=== PATIENT | female | born 1960 | race Caucasian/White ===

== ENCOUNTER 2017-11-12 17:20 | Inpatient (IN) | payer OTHER ==
[2017-11-12] MEDS ORDERED: MAG HYDROX/AL HYDROX/SIMETH 30 ML UNIT-DOSE CUP PO ONE (17:46)
[2017-11-12] MEDS ORDERED: ONDANSETRON 4 MG/2 ML VIAL IVPUSH ONE (17:46)
[2017-11-12] MEDS ORDERED: FAMOTIDINE IV 20 MG/12 ML VIAL IVPB ONE (17:46)
--- NOTE | 2017-11-12 17:59 | PDOC ---
History of Present Illness - General Chief Complaint: Chest Pain Stated Complaint: CHEST DISCOMFORT Time Seen by Provider: 11/12/17 17:24 History Source: Patient Exam Limitations: Language Barrier - History of Present Illness Initial Comments: 11/12/17 17:44 Patient is a 57F with history of HTN, HLD, and hypothyroidism here today complaining of an episode of chest pain located along the right sternal border that started this afternoon and lasted for about an hour. The pain has resolved now. The patient states her pain did not change with exertion, rest or inspiration. She states that she got better after getting 4 aspirin from EMS. She denies associated shortness of breath, fever, vomiting. She endorses a headache, nausea. Denies history of blood clots, leg swelling, recent travel, recent immobilization. Past History - Past Medical History Allergies/Adverse Reactions: Allergies Allergy/AdvReac Type Severity Reaction Status Date / Time No Known Allergies Allergy Verified 11/12/17 17:27 Home Medications: Ambulatory Orders Losartan Potassium 25 mg PO DAILY 11/12/17 COPD: No HTN: Yes - Suicide/Smoking/Psychosocial Hx Smoking History: Never smoked Hx Alcohol Use: No Drug/Substance Use Hx: No Substance Use Type: None Review of Systems - Review of Systems Comments:: 11/12/17 18:00 GENERAL/CONSTITUTIONAL: No fever. Positive for chills. No weakness. HEAD, EYES, EARS, NOSE AND THROAT: No change in vision. No sore throat. CARDIOVASCULAR: Positive for chest pain. Negative for shortness of breath RESPIRATORY: No cough, wheezing, or hemoptysis. GASTROINTESTINAL: Positive for nausea. Negative for vomiting, diarrhea or constipation. GENITOURINARY: No dysuria, frequency, or change in urination. MUSCULOSKELETAL: No joint or muscle swelling or pain. No neck or back pain. SKIN: No rash NEUROLOGIC: Positive for headache. Negative for vertigo, loss of consciousness, or change in strength/sensation. ENDOCRINE: No increased thirst. No abnormal weight change HEMATOLOGIC/LYMPHATIC: No anemia, easy bleeding, or history of blood clots. ALLERGIC/IMMUNOLOGIC: No hives or skin allergy. *Physical Exam - Vital Signs Last Vital Signs Temp Pulse Resp BP Pulse Ox 98.2 F 74 18 124/64 100 11/12/17 17:22 11/12/17 17:32 11/12/17 17:22 11/12/17 17:22 11/12/17 17:32 - Physical Exam Comments: 11/12/17 18:01 GENERAL: Awake, alert, and fully oriented, in no acute distress HEAD: No signs of trauma, normocephalic, atraumatic EYES: PERRLA, EOMI, sclera anicteric, conjunctiva clear ENT: Auricles normal inspection, hearing grossly normal, nares patent, oropharynx clear without exudates. Moist mucosa LUNGS: No distress, speaks full sentences, clear to auscultation bilaterally HEART: Regular rate and rhythm, normal S1 and S2, no murmurs, rubs or gallops, peripheral pulses normal and equal bilaterally. EXTREMITIES: Normal inspection, Normal range of motion, no edema. No clubbing or cyanosis. NEUROLOGICAL: Cranial nerves II through XII grossly intact. Normal speech, no focal sensorimotor deficits SKIN: Warm, Dry, normal turgor, no rashes or lesions noted. Heart Score/ECG Review - History History: Slightly suspicious - Electrocardiogram EKG: Normal - Age Age: 45-65 - Risk Factors Risk Factors Heart Score: Yes Hx Hypercholesterolemia, Yes Hx Hypertension Based on the list above the patient has:: 1-2 risk factors - Troponin Troponin: >/=3x normal limit - Score Heart Score - Total: 4 ED Treatment Course - LABORATORY CBC & Chemistry Diagram: 11/12/17 17:49 11/12/17 17:49 - RADIOLOGY Radiology Studies Ordered: Category Date Time Status CHEST PA & LAT [RAD] Stat Radiology 11/12/17 17:40 Ordered Medical Decision Making - Medical Decision Making 11/12/17 18:04 Patient is 57F with history of HLD, HTN and hypothyroidism here today complaining of chest pain. Vital signs stale and normal. Chest pain has resolved , not a typical story. Differential diagnosis includes, but is not limited to: ACS, arrhythmia, esophageal spasm. Given patient's history and exam, do not believe PE is a likely diagnosis. Will evaluate with cbc, cmp, trop, mag, pt/inr , ekg, cxr. Likely 1 trop and discharge. EKG shows normal sinus rhythm, normal rate = 72. Normal axis. No st elevation/ depressions. No t wave abnormalities. Normal WA/QTc/QRS intervals. 11/12/17 19:16 Laboratory Tests 11/12/17 11/12/17 17:49 17:49 WBC 7.7 Hgb 13.1 Hct 38.0 Plt Count 157 BUN 17 Creatinine 1.1 H Troponin I 0.52 H Trop positive to .52. Patient still chest pain free. Call placed to Dr Otto. Chest x-ray changed to portable. Patient on monitor with stable blood pressure, regular and normal rate. Normal work of breathing. 11/12/17 19:34 Dr Otto consulted, recommends plavix 75 and lovenox 1mg/kg BID. Will not transfer patient at this time. Will admit to hospitalist. *DC/Admit/Observation/Transfer Diagnosis at time of Disposition: NSTEMI (non-ST elevated myocardial infarction) - Discharge Dispostion Condition at time of disposition: Stable Admit: Yes - Referrals Referrals: Narendra Mckeon [Primary Care Provider] - - Patient Instructions - Post Discharge Activity
[2017-11-12] MEDS ORDERED: MAG HYDROX/AL HYDROX/SIMETH 30 ML UNIT-DOSE CUP ONE (18:01)
[2017-11-12] MEDS ORDERED: FAMOTIDINE 20 MG/50 ML IVPB 20 MG/50 ML MG IVPB ONE (18:01)
[2017-11-12] MEDS ORDERED: ONDANSETRON 4 MG/2 ML VIAL ONE (18:01)
--- NOTE | 2017-11-12 18:17 | PDOC ---
Attending Attestation - Resident Resident Name: Lionel Singh - ED Attending Attestation I have performed the following: I have examined & evaluated the patient, The case was reviewed & discussed with the resident, I agree w/resident's findings & plan, Exceptions are as noted - Physicial Exam PE: GENERAL: Awake, alert, and fully oriented, in no acute distress HEAD: No signs of trauma EYES: PERRLA, EOMI, sclera anicteric, conjunctiva clear ENT: Auricles normal inspection, hearing grossly normal, nares patent, oropharynx clear without exudates. Moist mucosa NECK: Normal ROM, supple, no lymphadenopathy, JVD, or masses LUNGS: Breath sounds equal, clear to auscultation bilaterally. No wheezes, and no crackles HEART: Regular rate and rhythm, normal S1 and S2, no murmurs, rubs or gallops ABDOMEN: Soft, nontender, normoactive bowel sounds. No guarding, no rebound. No masses EXTREMITIES: Normal range of motion, no edema. No clubbing or cyanosis. No cords, erythema, or tenderness NEUROLOGICAL: Cranial nerves II through XII grossly intact. Normal speech, normal gait SKIN: Warm, Dry, normal turgor, no rashes or lesions noted. - Medical Decision Making 11/12/17 19:15 Patient currently pain free. Trop is positive at 0.52. Will discuss with Dr. Rivera cardio reconcilement clerk. Plan for admission vs transfer. <Taina Javier - Last Filed: 11/12/17 19:15> - HPI HPI: 11/12/17 19:21 The patient is a 57 year old female, with a significant past medical history of hypertension, hyperlipidemia, and hypothyroidism, who presents to the emergency department via EMS with, the chest tightness. She reports her tightness to be localized to the right side beginning the afternoon approximately 30 minutes after drinking tea. She describes her chest tightness as nonradiating. She denies ever having similar episodes prior. She denies recent fevers, chills , headache or dizziness. She denies recent nausea, vomit, diarrhea or constipation. She denies recent dysuria, frequency, urgency or hematuria. Allergies: NKA Primary Care Physician: Dr. Narendra Mckeon - Medical Decision Making 11/12/17 7:16pm Call placed to Dr. Otto, reconcilement clerk rag collector, awaiting call back. 7:32pm Call returned from Dr. Otto, case discussed. 7:36pm Microblog placed to hospitalist for inpatient telemetry admission. <Tiffany Franco - Last Filed: 11/12/17 19:37> Attestations - Attestations 11/12/17 19:21 Documentation prepared by Tiffany Franco, acting as medical records library professor for Taina Javier MD. <Tiffany Franco - Last Filed: 11/12/17 19:37>
[2017-11-12 18:21] LABS: BASO % 0.5 % (0-2.0); EOS % 0.4 % (0-4.5); HEMOGLOBIN 13.1 GM/dL (10.7-15.3); LYMPH % 12.2 % (8-40); MCH 30.6 pg (25.7-33.7); MCHC 34.6 g/dl (32.0-36.0); MEAN CELL VOLUME 88.3 fl (80-96); MEAN PLT VOLUME 11.1 fl (7.5-11.1); NEUT % 82.9 % (42.8-82.8); PLATELET COUNT 157 K/MM3 (134-434); RDW 12.6 % (11.6-15.6); WHITE BLOOD COUNT 7.7 K/mm3 (4.0-10.0)
[2017-11-12 18:34] LABS: INR 1.05 (0.82-1.09); PROTHROMBIN TIME (PATIENT) 11.9 SEC (9.98-11.88)
[2017-11-12 18:49] LABS: ALBUMIN 3.9 g/dl (3.4-5.0); ANION GAP 5 (8-16); BILIRUBIN,TOTAL 0.1 mg/dL (0.2-1.0); BLOOD UREA NITROGEN 17 mg/dL (7-18); CALCIUM 8.5 mg/dL (8.5-10.1); CHLORIDE 106 mmol/L (98-107); CO2 29 mmol/L (21-32); CREATININE 1.1 mg/dL (0.55-1.02); GLUCOSE,RANDOM 114 mg/dL (74-106); SGPT/ALT 23 U/L (12-78); SODIUM 140 mmol/L (136-145); TOT PROT 6.9 g/dl (6.4-8.2)
[2017-11-12 19:03] LABS: ALK PHOS 56 U/L (45-117)
[2017-11-12 19:04] LABS: POTASSIUM 4.3 mmol/L (3.5-5.1); SGOT/AST 20 U/L (15-37)
[2017-11-12] MEDS ORDERED: CLOPIDOGREL BISULFATE 75 MG TABLET (FP) PO ONE (19:33)
[2017-11-12] MEDS ORDERED: ENOXAPARIN NA (PORCINE) 40 MG/0.4 ML DISP.SYRIN SQ ONE (19:33)
[2017-11-12] MEDS ORDERED: ENOXAPARIN NA (PORCINE) 80 MG/0.8 ML DISP.SYRIN SQ ONE (19:37)
[2017-11-12] MEDS ORDERED: CLOPIDOGREL BISULFATE 75 MG TABLET (FP) ONE (19:37)
[2017-11-12] MEDS ORDERED: ATORVASTATIN CA 80 MG TABLET (FP) PO ONE (21:20)
--- NOTE | 2017-11-12 21:25 | HP ---
CHIEF COMPLAINT: chest pain PCP: Dr. Narendra Mckeon HISTORY OF PRESENT ILLNESS: 57 year old female with a past medical history of hypertension, hyperlipidemia, and hypothyroidism presents to the ED due to chest pain. She states that she had a headache last night around 1-2am that continued until this morning. This morning, she had a coffee with breakfast and tea at 2pm. After the cup of tea she started to feel very strong chest pain midsternally as well as on the right side of her chest. She states that the pain did not radiate anywhere but was associated with a bitter taste in her mouth. She called her son, who advised calling EMS. EMS administered aspirin 325 and patient's symptoms improved before arriving to the ED. Upon examination, patient states that she has not had this pain since arriving to the ED, but she does feel anxious. She denies ever smoking and drinks only socially. She endorses a strong family history of heart disease in both of her parents. Currently denies chest pain, SOB, nausea, vomiting, diarrhea, fevers, chills. ER course was notable for: (1) Trop 0.52 (2) CK MB 5.971 (3) normal EKG with 1 T wave inversion in lead 3 Recent Travel: none PAST MEDICAL HISTORY: HTN, HLD, Hypothyroidism PAST SURGICAL HISTORY: unknown Social History: Smoking: never Alcohol: socially Drugs: never Family History: Allergies No Known Allergies Allergy (Verified 11/12/17 17:27) HOME MEDICATIONS: Home Medications Medication Instructions Recorded Losartan Potassium 25 mg PO DAILY 11/12/17 REVIEW OF SYSTEMS CONSTITUTIONAL: Absent: fever, chills, diaphoresis, generalized weakness, malaise, loss of appetite, weight change HEENT: Absent: rhinorrhea, nasal congestion, throat pain, throat swelling, difficulty swallowing, mouth swelling, ear pain, eye pain, visual changes CARDIOVASCULAR: Absent: chest pain, syncope, palpitations, irregular heart rate, lightheadedness , peripheral edema RESPIRATORY: Absent: cough, shortness of breath, dyspnea with exertion, orthopnea, wheezing, stridor, hemoptysis GASTROINTESTINAL: Absent: abdominal pain, abdominal distension, nausea, vomiting, diarrhea, constipation, melena, hematochezia GENITOURINARY: Absent: dysuria, frequency, urgency, hesitancy, hematuria, flank pain, genital pain MUSCULOSKELETAL: Absent: myalgia, arthralgia, joint swelling, back pain, neck pain SKIN: Absent: rash, itching, pallor HEMATOLOGIC/IMMUNOLOGIC: Absent: easy bleeding, easy bruising, lymphadenopathy, frequent infections ENDOCRINE: Absent: unexplained weight gain, unexplained weight loss, heat intolerance, cold intolerance NEUROLOGIC: Absent: headache, focal weakness or paresthesias, dizziness, unsteady gait, seizure, mental status changes, bladder or bowel incontinence PSYCHIATRIC: Absent: anxiety, depression, suicidal or homicidal ideation, hallucinations. PHYSICAL EXAMINATION Vital Signs - 24 hr 11/12/17 11/12/17 11/12/17 17:22 17:32 18:16 Temperature 98.2 F Pulse Rate 75 74 Pulse Rate [ 70 Apical] Respiratory 18 18 Rate Blood Pressure 124/64 Blood Pressure 117/62 [Left Arm] O2 Sat by Pulse 100 100 100 Oximetry (%) GENERAL: A & O x , mildly anxious but in no acute distress EYES:PERRLA EOMI LUNGS: CTA, no wheezes, crackles or rhonci appreciated HEART: RRR, normal S1 and S2 without murmur, rub or gallop. ABDOMEN: Soft, nontender, not distended, normoactive bowel sounds MUSCULOSKELETAL: Normal range of motion at all joints. No bony deformities or tenderness. No CVA tenderness. NEUROLOGICAL: Cranial nerves II-XII intact. Normal speech. Normal gait. PSYCHIATRIC: Cooperative. Good eye contact. Appropriate mood and affect. SKIN: Warm, dry, normal turgor, no rashes or lesions noted, normal capillary refill. Laboratory Results - last 24 hr 11/12/17 11/12/17 11/12/17 17:49 17:49 17:49 WBC 7.7 RBC 4.30 Hgb 13.1 Hct 38.0 MCV 88.3 MCH 30.6 MCHC 34.6 RDW 12.6 Plt Count 157 MPV 11.1 Neutrophils % 82.9 H Lymphocytes % 12.2 Monocytes % 4.0 Eosinophils % 0.4 Basophils % 0.5 PT with INR 11.90 H INR 1.05 Sodium 140 Potassium 4.3 Chloride 106 Carbon Dioxide 29 Anion Gap 5 L BUN 17 Creatinine 1.1 H Creat Clearance w eGFR 50.84 Random Glucose 114 H Calcium 8.5 Magnesium 2.0 Total Bilirubin 0.1 L AST 20 ALT 23 Alkaline Phosphatase 56 Creatine Kinase 162 Creatine Kinase Index 3.6 CK-MB (CK-2) 5.971 H Troponin I 0.52 H Total Protein 6.9 Albumin 3.9 Home Medication List Medication Instructions Recorded Confirmed Type Losartan Potassium 25 mg PO DAILY 11/12/17 11/12/17 History Active Medications Generic Name Dose Route Start Last Admin Trade Name Rc PRN Reason Stop Dose Admin Aspirin 81 mg 11/13/17 10:00 Asa - PO DAILY ÁNGEL Atorvastatin Calcium 80 mg 11/12/17 22:00 Lipitor - PO HS ÁNGEL Clopidogrel Bisulfate 75 mg 11/13/17 10:00 Plavix - PO DAILY ÁNGEL Enoxaparin Sodium 70 mg 11/13/17 10:00 Lovenox - SQ BID ÁNGEL Losartan Potassium 25 mg 11/13/17 10:00 Cozaar - PO DAILY ÁNGEL ASSESSMENT/PLAN: 57 year old female with hx of HTN, HLD, hypothyroidism is admitted to the hospital for the treatment of chest pain likely 2/2 NSTEMI #Chest pain: likely due to NSTEMI due to elevated troponins, CKMB, asymptomatic currently -TAM score 2 (fam hx, HTN, HLD, elevated trops) -patient got ASA [address] -cardiology consult Dr. Otto appreciated -start plavix 75 QD -start lovenox 70mg SQ BID -ASA 81 in AM -Atorvastatin 80mg -lipid panel ordered for the am -repeat trop at midnight and 6am -repeat EKG now and at midnight #Hypertension: stable -continue losartan 25 PO QD #Hypothyroidism: stable -continue synthroid 50mcgs -will need to confirm this medication with [facility] in the [place] #FEN -no standing fluids -replete lytes in AM -cholesterol diet #Prophylaxis -on lovenox #Disposition -Admit to telemetry for monitoring Visit type - Emergency Visit Emergency Visit: Yes ED Registration Date: 11/12/17 Care time: The patient presented to the Emergency Department on the above date and was hospitalized for further evaluation of their emergent condition. - New Patient This patient is new to me today: Yes Date on this admission: 11/12/17 - Critical Care Critical Care patient: No Hospitalist Screening - Colonoscopy Questionnaire Colonoscopy Questionnaire: Colonoscopy Questionnaire - Patient: 50 - 75 years old and never had a screening colonoscopy: Unknown History of colon or rectal polyps, or CA: Unknown History of IBD, Crohn's disease or UC: Unknown History of abdominal radiation therapy as a child: Unknown - Relative: 1 with colon or rectal CA, or polyps at age 60 or younger: Unknown Colon or rectal CA diagnosed at age 45 or younger: Unknown Multiple relatives with colon or rectal CA: Unknown - Outcome: Screening Result: Negative Screen
[2017-11-12] MEDS: ATORVASTATIN CA 80 MG TABLET (FP) PO SCH (22:13)
--- NOTE | 2017-11-13 01:08 | PN ---
Teaching Attending Note Name of Resident: Stewart Terrell ATTENDING PHYSICIAN STATEMENT I saw and evaluated the patient. Chart, data, imaging reviewed. I reviewed the resident's note and discussed the case with the resident. I agree with the resident's findings and plan as documented. SUBJECTIVE: 57 year old female with a past medical history of HTN, DLP, hypothyroidism, presented w/ right sided chest pain which started 11/12 at around 2 pm when patient was cleaning and persisted for several hours until she EMS was bringing her to hospital and she received ASA loading dose. Troponin was elevated at 0.5 in ER and trended up to [address] Otto (office receptionist religion teacher) was contacted and recommended no urgent cath and to treat medically with ASA, clopidogrel and enoxaprarin. OBJECTIVE: Last Vital Signs Temp Pulse Resp BP Pulse Ox 98.2 F 70 18 117/62 100 11/12/17 17:22 11/12/17 18:16 11/12/17 18:16 11/12/17 18:16 11/12/17 18:16 general -nad, aaox3, appears comfortable heent- at, nc, moist mucous membranes neck -supple cv-s1+s2+ rrr, no murmurs appreciated chest- cta b/l, no wheezing, rales, or crackles skin- no rashes appreciated ext- no pedal edema EKG- nsr, t wave inversion in lead 3, no ST changes Abnormal Lab Results 11/12/17 11/12/17 11/12/17 17:49 17:49 17:49 Neutrophils % 82.9 H PT with INR 11.90 H Anion Gap 5 L Creatinine 1.1 H Random Glucose 114 H Total Bilirubin 0.1 L CK-MB (CK-2) 5.971 H Troponin I 0.52 H 11/12/17 23:15 Neutrophils % PT with INR Anion Gap Creatinine Random Glucose Total Bilirubin CK-MB (CK-2) Troponin I 7.27 H* CXR- no infiltrates seen ASSESSMENT AND PLAN: #NSTEMI -no EKG indications for urgent catheterization. Can treat medically. Cardiology religion teacher was notified. Patient otherwise hemodynamically stable. -admit to telemetry floor -s/p 325mg ASA in ambulance, c/w ASA 81mg daily -Plavix 75mg daily -Lovenox 70mg IV q12hrs -bblocker -ACEi -high dose statin -serial EKGs -cardiology consult -TSH -Transthoracic echo -replace and electrolyte abnormalities -Mg, phos #Diet- Low Na, low fat diet #DVT ppx with Lovenox
[2017-11-13 01:11] VITALS: BMI 25.0
[2017-11-13 06:32] LABS: BASO % 0.4 % (0-2.0); HEMATOCRIT 37.7 % (32.4-45.2); HEMOGLOBIN 12.7 GM/dL (10.7-15.3); LYMPH % 34.9 % (8-40); MCHC 33.7 g/dl (32.0-36.0); MEAN CELL VOLUME 89.1 fl (80-96); MONO % 6.6 % (3.8-10.2); NEUT % 57.1 % (42.8-82.8); PLATELET COUNT 167 K/MM3 (134-434); RBC 4.23 M/mm3 (3.60-5.2); RDW 12.9 % (11.6-15.6); WHITE BLOOD COUNT 6.6 K/mm3 (4.0-10.0)
[2017-11-13] MEDS: LEVOTHYROXINE NA 50 MCG TABLET (FP) PO SCH (06:32)
[2017-11-13 06:47] LABS: ALBUMIN 3.6 g/dl (3.4-5.0); ANION GAP 6 (8-16); BLOOD UREA NITROGEN 18 mg/dL (7-18); CALCIUM 8.1 mg/dL (8.5-10.1); CHLORIDE 106 mmol/L (98-107); CHOLESTEROL 172 mg/dL (50-200); CO2 29 mmol/L (21-32); CREATININE 0.7 mg/dL (0.55-1.02); GLUCOSE,RANDOM 96 mg/dL (74-106); MAGNESIUM 2.1 mg/dL (1.8-2.4); POTASSIUM 4.2 mmol/L (3.5-5.1); SGOT/AST 28 U/L (15-37); SGPT/ALT 23 U/L (12-78); SODIUM 141 mmol/L (136-145); TRIGLYCERIDES 104 mg/dL (35-160)
[2017-11-13 07:03] LABS: ALK PHOS 51 U/L (45-117); BILIRUBIN,TOTAL 0.3 mg/dL (0.2-1.0); HDL CHOLESTEROL 54 mg/dL (40-60); LDL CHOLESTEROL (ONLY SJRH) 110 mg/dL (5-100); TOT PROT 6.6 g/dl (6.4-8.2)
[2017-11-13] MEDS: ASPIRIN 81 MG CHEWABLE TABLETS PO SCH ×2 (08:28→09:15)
[2017-11-13] MEDS: CLOPIDOGREL BISULFATE 75 MG TABLET (FP) PO SCH ×2 (08:28→09:16)
[2017-11-13] MEDS: LOSARTAN POTASSIUM 25 MG TABLET PO SCH ×2 (08:28→09:16)
[2017-11-13] MEDS: ENOXAPARIN NA (PORCINE) 80 MG/0.8 ML DISP.SYRIN SQ SCH ×3 (08:29→21:17)
[2017-11-13] MEDS ORDERED: METOPROLOL TARTRATE 25 MG TABLET (FP) PO SCH (12:45)
--- NOTE | 2017-11-13 12:46 | PN ---
Progress Note (short form) - Note Progress Note: Subjective: no fever or chills , no PC now , no SOB . Objective: Vital Signs: Last Vital Signs Temp Pulse Resp BP Pulse Ox 98.7 F 76 20 126/77 97 11/13/17 05:58 11/13/17 05:58 11/13/17 05:58 11/13/17 05:58 11/12/17 23:00 Laboratory Results - last 24 hr 11/12/17 11/12/17 11/12/17 17:49 17:49 17:49 WBC 7.7 RBC 4.30 Hgb 13.1 Hct 38.0 MCV 88.3 MCH 30.6 MCHC 34.6 RDW 12.6 Plt Count 157 MPV 11.1 Neutrophils % 82.9 H Lymphocytes % 12.2 Monocytes % 4.0 Eosinophils % 0.4 Basophils % 0.5 PT with INR 11.90 H INR 1.05 Sodium 140 Potassium 4.3 Chloride 106 Carbon Dioxide 29 Anion Gap 5 L BUN 17 Creatinine 1.1 H Creat Clearance w eGFR 50.84 Random Glucose 114 H Calcium 8.5 Magnesium 2.0 Total Bilirubin 0.1 L AST 20 ALT 23 Alkaline Phosphatase 56 Creatine Kinase 162 Creatine Kinase Index 3.6 CK-MB (CK-2) 5.971 H Troponin I 0.52 H Total Protein 6.9 Albumin 3.9 Triglycerides Cholesterol Total LDL Cholesterol HDL Cholesterol 11/12/17 11/13/17 11/13/17 23:15 05:05 05:05 WBC 6.6 RBC 4.23 Hgb 12.7 Hct 37.7 MCV 89.1 MCH 30.0 MCHC 33.7 RDW 12.9 Plt Count 167 MPV 11.0 Neutrophils % 57.1 D Lymphocytes % 34.9 D Monocytes % 6.6 Eosinophils % 1.0 D Basophils % 0.4 PT with INR INR Sodium 141 Potassium 4.2 Chloride 106 Carbon Dioxide 29 Anion Gap 6 L BUN 18 Creatinine 0.7 Creat Clearance w eGFR > 60 Random Glucose 96 Calcium 8.1 L Magnesium 2.1 Total Bilirubin 0.3 D AST 28 ALT 23 Alkaline Phosphatase 51 Creatine Kinase 237 H Creatine Kinase Index 6.7 H* CK-MB (CK-2) 16.015 H Troponin I 7.27 H* 4.57 H* Total Protein 6.6 Albumin 3.6 Triglycerides 104 Cholesterol 172 Total LDL Cholesterol 110 H HDL Cholesterol 54 Physical Exam: AD , pleasant and cooperative . scar on lower anterior neck CV: RRR, HR in 80s , no JVD , no mRG Lungs: CTAB ext: no edema or erythema Abd: soft, NT, ND , nL BS Assessment/Plan: 57 y/o lady with h/o HTN, hypothyroidism and a family h/o CAD who presented with CP, and was found to have NSTEMI 1- NSTEMI: CP free now. EKG reviewed, flattening TW in inferior leads . trop trended down. No signs of heart failure , or hemodynamic unsalability - cont ASA, plavix and Lovenox . was not loaded with plavix, might be considered by card - cont losartan - add BB as her HR is in 80s not at goal - tele with no events ( one episode of sinus tach) - cont statin . LDL goal < 70 - will need cath - repeat EKG - card consult pending 2- h/o Hypothyroidism : s/p thyrodectomy ( ? partial ) for thyroid nodules - cont synthroid at 50 , dose confirmed with pt 3- HTN:monitor on losartan and added BB 4- Dispo : will likely be transferred for cath awaiting card Recs Visit type - Emergency Visit Emergency Visit: Yes ED Registration Date: 11/12/17 Care time: The patient presented to the Emergency Department on the above date and was hospitalized for further evaluation of their emergent condition. - New Patient This patient is new to me today: No - Critical Care Critical Care patient: No
[2017-11-13] MEDS: METOPROLOL TARTRATE 25 MG TABLET (FP) PO SCH ×2 (14:17→21:17)
--- NOTE | 2017-11-13 15:59 | CON.CARD ---
Consult Consult Specialty:: Cardiology Referred by:: Dr. Singh and Dr. Hickey Reason for Consultation:: Chest pain with evidence of NSTEMI - History of Present Illness Chief Complaint: Chest pain History of Present Illness: 57 year old woman with family history of CAD and a PMHx of hypertension, hyperlipidemia, and hypothyroidism admitted 11/12/2017 for chest pain with evidence of NSTEMI. The patient developed midsternal chest pain with headache while cleaning on the day of admission. Her chest pain lasted for over 2 hours and subsided after arrived in ED and treated with aspirin. She was found to have NSTEMI with peak troponin of 7.27 and CK of 237. ECG showed sinus rhythm with inferior and lateral T inversion. She has been treated for ACS without recurrent chest pain since admission. No symptoms of CHF. No cardiac arrhythmia noted on tele since admission. - History Source History Provided By: Patient Limitations to Obtaining History: No Limitations - Past Medical History Cardio/Vascular: Yes: HTN - Alcohol/Substance Use Hx Alcohol Use: No - Smoking History Smoking history: Never smoked Have you smoked in the past 12 months: No Home Medications - Allergies Allergies/Adverse Reactions: Allergies Allergy/AdvReac Type Severity Reaction Status Date / Time No Known Allergies Allergy Verified 11/12/17 17:27 - Home Medications Home Medications: Ambulatory Orders Losartan Potassium 25 mg PO DAILY 11/12/17 Levothyroxine [Synthroid -] 50 mcg PO DAILY 11/13/17 Family Disease History - Family Disease History Family Disease History: Heart Disease: Father (CAD), Mother (CAD), Brother Review of Systems - Review of Systems Constitutional: reports: No Symptoms Eyes: reports: No Symptoms HENT: reports: No Symptoms Neck: reports: No Symptoms Cardiovascular: reports: Chest Pain Respiratory: reports: No Symptoms Gastrointestinal: reports: No Symptoms Genitourinary: reports: No Symptoms Breasts: reports: No Symptoms Reported Musculoskeletal: reports: No Symptoms Integumentary: reports: No Symptoms Neurological: reports: Headache Endocrine: reports: No Symptoms Hematology/Lymphatic: reports: No Symptoms Psychiatric: reports: No Symptoms Vital Signs: Vital Signs Temperature 97.5 F L 11/13/17 13:54 Pulse Rate 79 11/13/17 13:54 Respiratory Rate 18 11/13/17 13:54 Blood Pressure 128/75 11/13/17 13:54 O2 Sat by Pulse Oximetry (%) 96 11/13/17 10:00 Physical Examination: General: Well developed. Well nourished. No acute distress. Head: Normocephalic. Atraumatic, Eyes: PERRLA, EOMI. Sclerae anicteric. Conjunctivae clear. Neck: Supple. No JVD. No bruits. Heart: Normal S1, S2: Regular rhythm and rate. No murmur. No gallop or rub. Lungs: Symmetrical air entry. Clear to auscultation. No crackle. No wheezing or rhonchi. Abdomen: Soft. Bowel sound positive. Non tender. No masses. Extremities: No edema. No clubbing or cyanosis. PD 2+, equal bilaterally. Neuro: Intact, no focal findings. AAO X3. - Other Data Labs, Other Data: CBC, BMP 11/13/17 05:05 11/13/17 05:05 INR, PTT INR 1.05 (0.82-1.09) 11/12/17 17:49 Troponin, BNP 11/12/17 11/12/17 11/13/17 17:49 23:15 05:05 Troponin I 0.52 H 7.27 H* 4.57 H* Troponin, BNP 11/12/17 11/12/17 11/13/17 17:49 23:15 05:05 Troponin I 0.52 H 7.27 H* 4.57 H* Sinus rhthm, normal axis. T wave inversion of inferolateral leads. Imaging - Results EKG: Image Reviewed (Sinus rhthm, normal axis. T wave inversion of inferolateral leads.) Assessment/Plan 57 year old woman with family history of CAD and a PMHx of hypertension, hyperlipidemia, and hypothyroidism admitted 11/12/2017 for chest pain with evidence of NSTEMI. The patient developed midsternal chest pain with headache while cleaning on the day of admission. Her chest pain lasted for over 2 hours and subsided after arrived in ED and treated with aspirin. She was found to have NSTEMI with peak troponin of 7.27 and CK of 237. ECG showed sinus rhythm with inferior and lateral T inversion. She has been treated for ACS without recurrent chest pain since admission. No symptoms of CHF. No cardiac arrhythmia noted on tele since admission. 1) NSTEMI: Stable without recurrent angina or symptoms of CHF. Troponin is trending down. Continue aspirin, Plavix, Lovenox, metoprolol and atorvastatin. The patient will be transferred to [facility] tomorrow for cardiac cath. Please keep the patient NPO after breakfast tomorrow. 2) Hypertension: BP and heart rate are well controlled. Continue Metoprolol and losartan.
--- NOTE | 2017-11-13 18:27 | EKG ---
Test Reason : Blood Pressure : / mmHG Vent. Rate : 071 BPM Atrial Rate : 071 BPM P-R Int : 158 ms QRS Dur : 082 ms QT Int : 404 ms P-R-T Axes : -18 011 -53 degrees QTc Int : 439 ms NORMAL SINUS RHYTHM T WAVE ABNORMALITY, CONSIDER INFEROLATERAL ISCHEMIA ABNORMAL ECG WHEN COMPARED WITH ECG OF 12-NOV-2017 22:58, T WAVE INVERSION MORE EVIDENT IN INFERIOR LEADS Confirmed by MD JUILETH, FIDELIA ([id number]) on 11/13/2017 6:26:54 PM Referred By: Confirmed By:FIDELIA CLANCY MD
--- NOTE | 2017-11-13 18:36 | EKG ---
Test Reason : Blood Pressure : / mmHG Vent. Rate : 068 BPM Atrial Rate : 068 BPM P-R Int : 162 ms QRS Dur : 080 ms QT Int : 382 ms P-R-T Axes : -16 010 003 degrees QTc Int : 406 ms NORMAL SINUS RHYTHM T WAVE ABNORMALITY, CONSIDER INFERIOR ISCHEMIA Confirmed by MD JULIETH, FIDELIA ([id number]) on 11/13/2017 6:36:29 PM Referred By: Confirmed By:FIDELIA CLANCY MD
--- NOTE | 2017-11-13 18:41 | EKG ---
Test Reason : Blood Pressure : / mmHG Vent. Rate : 072 BPM Atrial Rate : 072 BPM P-R Int : 162 ms QRS Dur : 080 ms QT Int : 388 ms P-R-T Axes : 020 021 020 degrees QTc Int : 424 ms NORMAL SINUS RHYTHM NORMAL ECG WHEN COMPARED WITH ECG OF 14-MAY-2010 13:13, NO SIGNIFICANT CHANGE WAS FOUND Confirmed by MD JULIETH, FIDELIA ([id number]) on 11/13/2017 6:40:53 PM Referred By: Confirmed By:FIDELIA CLANCY MD
[2017-11-13] MEDS: ATORVASTATIN CA 80 MG TABLET (FP) PO SCH (21:17)
[2017-11-13] MEDS ORDERED: ATORVASTATIN CA 40 MG TABLET (FP) PO SCH (22:00)
[2017-11-14] MEDS: LEVOTHYROXINE NA 50 MCG TABLET (FP) PO SCH (06:47)
[2017-11-14] MEDS: ASPIRIN 81 MG CHEWABLE TABLETS PO SCH ×2 (08:04→09:14)
[2017-11-14] MEDS: METOPROLOL TARTRATE 25 MG TABLET (FP) PO SCH ×2 (08:04→09:14)
[2017-11-14] MEDS: CLOPIDOGREL BISULFATE 75 MG TABLET (FP) PO SCH ×2 (08:05→09:14)
[2017-11-14] MEDS: LOSARTAN POTASSIUM 25 MG TABLET PO SCH ×2 (08:05→09:14)
[2017-11-14] MEDS: ENOXAPARIN NA (PORCINE) 80 MG/0.8 ML DISP.SYRIN SQ SCH ×2 (08:05→09:14)
--- NOTE | 2017-11-14 08:45 | PN ---
Teaching Attending Note Name of Resident: Stewart Terrell ATTENDING PHYSICIAN STATEMENT I saw and evaluated the patient. I reviewed the resident's note and discussed the case with the resident. I agree with the resident's findings and plan as documented. SUBJECTIVE: No cp over night , slept 4 hrs, no SOB , no LEVI . OBJECTIVE: AD , pleasant and cooperative . scar on lower anterior neck CV: RRR, HR in 70s , no JVD , no MRG Lungs: CTAB ext: no edema or erythema Assessment/Plan: 57 y/o lady with h/o HTN, hypothyroidism and a family h/o CAD who presented with CP, and was found to have NSTEMI 1- NSTEMI: still no CP in house. - tele with no events - cont asa , plavix , and Lovenox - cont metoprolol and losartan - cont statin - repeat EKG yesterday with worsening TWI in inferior leads, and new TWI V5.V6 - Tx for cath today 2- h/o Hypothyroidism : s/p thyrodectomy ( ? partial ) for thyroid nodules - cont synthroid at 48 3- HTN:losartan and BB 4- Dispo : Tx to [facility] for cath today
[2017-11-14 09:33] VITALS: BP 137/88; PULSE 69; TEMP 98
--- NOTE | 2017-11-14 10:39 | DS ---
Addendum entered and electronically signed by Stewart Terrell, RESIDENT 11/14 10:47: Troponins peaked at 7.27. Original Note: Physical Exam: SUBJECTIVE: Patient seen and examined at bedside. No acute overnight events. No chest pain or SOB overnight. No arrhythmias on monitor detected. OBJECTIVE: Vital Signs Period Temp Pulse Resp BP Sys/Sales Pulse Ox Last 24 Hr 97.3 F-98.7 F 69-79 18-20 121-149/64-88 99-100 PHYSICAL EXAM GENERAL: A & O x 3, no acute distress EYES:PERRLA EOMI LUNGS: CTA, no wheezes, crackles or rhonci appreciated HEART: RRR, normal S1 and S2 without murmur, rub or gallop. ABDOMEN: Soft, nontender, not distended, normoactive bowel sounds MUSCULOSKELETAL: Normal range of motion at all joints. No bony deformities or tenderness. No CVA tenderness. NEUROLOGICAL: Cranial nerves II-XII intact. Normal speech. Normal gait. PSYCHIATRIC: Cooperative. Good eye contact. Appropriate mood and affect. SKIN: Warm, dry, normal turgor, no rashes or lesions noted, normal capillary refill. LABS Laboratory Last Values WBC 6.6 K/mm3 (4.0-10.0) 11/13/17 05:05 RBC 4.23 M/mm3 (3.60-5.2) 11/13/17 05:05 Hgb 12.7 GM/dL (10.7-15.3) 11/13/17 05:05 Hct 37.7 % (32.4-45.2) 11/13/17 05:05 MCV 89.1 fl (80-96) 11/13/17 05:05 MCH 30.0 pg (25.7-33.7) 11/13/17 05:05 MCHC 33.7 g/dl (32.0-36.0) 11/13/17 05:05 RDW 12.9 % (11.6-15.6) 11/13/17 05:05 Plt Count 167 K/MM3 (134-434) 11/13/17 05:05 MPV 11.0 fl (7.5-11.1) 11/13/17 05:05 Neutrophils % 57.1 % (42.8-82.8) D 11/13/17 05:05 Lymphocytes % 34.9 % (8-40) D 11/13/17 05:05 Monocytes % 6.6 % (3.8-10.2) 11/13/17 05:05 Eosinophils % 1.0 % (0-4.5) D 11/13/17 05:05 Basophils % 0.4 % (0-2.0) 11/13/17 05:05 PT with INR 11.90 SEC (9.98-11.88) H 11/12/17 17:49 INR 1.05 (0.82-1.09) 11/12/17 17:49 Sodium 141 mmol/L (136-145) 11/13/17 05:05 Potassium 4.2 mmol/L (3.5-5.1) 11/13/17 05:05 Chloride 106 mmol/L (98-107) 11/13/17 05:05 Carbon Dioxide 29 mmol/L (21-32) 11/13/17 05:05 Anion Gap 6 (8-16) L 11/13/17 05:05 BUN 18 mg/dL (7-18) 11/13/17 05:05 Creatinine 0.7 mg/dL (0.55-1.02) 11/13/17 05:05 Creat Clearance w eGFR > 60 (>60) 11/13/17 05:05 Random Glucose 96 mg/dL (74-106) 11/13/17 05:05 Calcium 8.1 mg/dL (8.5-10.1) L 11/13/17 05:05 Magnesium 2.1 mg/dL (1.8-2.4) 11/13/17 05:05 Total Bilirubin 0.3 mg/dL (0.2-1.0) D 11/13/17 05:05 AST 28 U/L (15-37) 11/13/17 05:05 ALT 23 U/L (12-78) 11/13/17 05:05 Alkaline Phosphatase 51 U/L (45-117) 11/13/17 05:05 Creatine Kinase 237 IU/L (26-192) H 11/13/17 05:05 Creatine Kinase Index 6.7 % (0.0-5.0) H* 11/13/17 05:05 CK-MB (CK-2) 16.015 ng/mL (0.5-3.6) H 11/13/17 05:05 Troponin I 4.57 ng/ml (0.00-0.05) H* 11/13/17 05:05 Total Protein 6.6 g/dl (6.4-8.2) 11/13/17 05:05 Albumin 3.6 g/dl (3.4-5.0) 11/13/17 05:05 Triglycerides 104 mg/dL (35-160) 11/13/17 05:05 Cholesterol 172 mg/dL (50-200) 11/13/17 05:05 Total LDL Cholesterol 110 mg/dL (5-100) H 11/13/17 05:05 HDL Cholesterol 54 mg/dL (40-60) 11/13/17 05:05 Home Medication List Medication Instructions Recorded Confirmed Type Losartan Potassium 25 mg PO DAILY 11/12/17 11/12/17 History Levothyroxine [Synthroid -] 50 mcg PO DAILY 11/13/17 11/13/17 History Current Medications Aspirin (Asa -) 81 mg PO DAILY [facility] Last Admin: 11/14/17 09:14 Dose: Not Given Atorvastatin Calcium (Lipitor -) 80 mg PO HS [facility] Last Admin: 11/13/17 21:17 Dose: 80 mg Clopidogrel Bisulfate (Plavix -) 75 mg PO DAILY [facility] Last Admin: 11/14/17 09:14 Dose: Not Given Enoxaparin Sodium (Lovenox -) 70 mg SQ BID [facility] Last Admin: 11/14/17 09:14 Dose: Not Given Levothyroxine Sodium (Synthroid -) 50 mcg PO DAILY@0700 [facility] Last Admin: 11/14/17 06:47 Dose: 50 mcg Losartan Potassium (Cozaar -) 25 mg PO DAILY [facility] Last Admin: 11/14/17 09:14 Dose: Not Given Metoprolol Tartrate (Lopressor -) 12.5 mg PO BID [facility] Last Admin: 11/14/17 09:14 Dose: Not Given HOSPITAL COURSE: Date of Admission:11/12/17 57 year old female with a past medical history of hypertension, hyperlipidemia, and hypothyroidism presents to the ED due to chest pain. She had a headache the night before admission, around 1-2am that continued until morning of admission. That morning, she had a coffee with breakfast and tea at 2pm. After the cup of tea she started to feel very strong chest pain midsternally as well as on the right side of her chest. reported that the pain did not radiate anywhere but was associated with a bitter taste in her mouth. She called her son, who helped call EMS. EMS administered aspirin 325 and patient's symptoms improved before arriving to the ED. In the ED, patient's labs were significant for Trop of 0.52 , CKMB 5.972, and an unimpressive EKG with one T wave inversion in lead 3. Cardiology was consulted, Dr. Tomy Otto. Patient was treated with aspirin, plavix , atorvastatin, metoprolol 12.5 BID, and therapeutic lovenox. Patient was on losartan 25 QD for blood pressure. Patient remained asymptomatic throughout hospitalization. This morning, she was kept NPO after breakfast for anticipated procedure. She was transferred to [facility] on 11/14/17 for cardiac catheterization. Date of Discharge: 11/14/17 Minutes to complete discharge: 35 Discharge Summary Reason For Visit: NON ST-(NSTEMI) Current Active Problems NSTEMI (non-ST elevated myocardial infarction) (Acute) Condition: Stable - Instructions Referrals: Narendra Mckeon [Primary Care Provider] - Disposition: TRANSFER ACUTE CARE/OTHER HOSP - Home Medications Comprehensive Discharge Medication List: Ambulatory Orders Losartan Potassium 25 mg PO DAILY 11/12/17 Levothyroxine [Synthroid -] 50 mcg PO DAILY 11/13/17 This patient is new to me today: No Emergency Visit: No Critical Care patient: No - Discharge Referral Referred to [facility] No
== END 2017-11-14 11:39 | disposition short-term general hospital (02) | DRG 282 ==
LOC: JER 17:20 → JERBED 19:57 → J4W 22:09
PROVIDERS: ADMIT Internal Medicine; ATTEND Internal Medicine
DX: I21.4 Non-ST elevation (NSTEMI) myocardial infarction (principal); I10 Essential (primary) hypertension; E78.5 Hyperlipidemia, unspecified; E03.9 Hypothyroidism, unspecified
CPT/HCPCS: 36415; 71045-TC-FY; 80053; 80061; 82550; 82553; 83721; 83735; 84484; 85025; 85610; 93005; 93010; 93306-TC; 99285-25